=== PATIENT | male | born 1995 | race African-American/Black ===

== ENCOUNTER 2016-09-29 13:27 | Emergency (ER) | payer SELFPAY ==
[2016-09-29] MEDS ORDERED: HYDROcodone/Acetaminophen 5/325 mg Tablet ONE (13:47)
[2016-09-29] MEDS ORDERED: Ibuprofen 800 MG TAB ONE (13:47)
--- NOTE | 2016-09-29 16:20 | RAD ---
LEFT KNEE RADIOGRAPHS FOUR VIEWS 09/29/2016 PROVIDED CLINICAL HISTORY: Left knee pain, status post injury. FINDINGS: No evidence for fracture or other acute osseous abnormality. If there is persistent clinical concer n, conservative management and follow-up imaging are advised. IMPRESSION: No evidence for an acute osseous abnormality. If there is persistent clinical concern, conservative management and follow-up imaging are advised. POS: LOW
--- NOTE | 2016-09-29 16:21 | RAD ---
LEFT FORELEG RADIOGRAPHS TWO VIEWS 09/29/2016 PROVIDED CLINICAL HISTORY: Left foreleg pain, status post injury. FINDINGS: There is no evidence for fracture or other acute osseous abnormality. If there is persistent clinic al concern, conservative management and follow-up imaging are advised. IMPRESSION: As above. POS: LOW
--- NOTE | 2016-09-29 16:22 | RAD ---
LEFT ANKLE RADIOGRAPHS THREE VIEWS 09/29/2016 PROVIDED CLINICAL HISTORY: Left ankle pain, status post injury. FINDINGS: There is no evidence for fracture or other acute osseous abnormality. If there is persistent clinic al concern, conservative management and follow-up imaging are advised. IMPRESSION: As above. POS: LOW
--- NOTE | 2016-09-29 16:23 | RAD ---
LEFT FOOT RADIOGRAPHS THREE VIEWS 09/29/2016 PROVIDED CLINICAL HISTORY: Left foot pain, status post injury. FINDINGS: No evidence for fracture or other acute osseous abnormality. If there is persistent clinical concer n, conservative management and follow-up imaging are advised. IMPRESSION: As above. POS: LOW
== END 2016-09-29 14:50 | disposition home or self-care (01) ==
LOC: NAV ERS 13:27
DX: S93.402A Sprain of unspecified ligament of left ankle, initial encounter (principal); F31.9 Bipolar disorder, unspecified; F17.210 Nicotine dependence, cigarettes, uncomplicated; X50.1XXA Overexertion from prolonged static or awkward postures, initial encounter

== ENCOUNTER 2016-10-23 18:01 | Emergency (ER) | payer SELFPAY ==
[2016-10-23] MEDS ORDERED: Diazepam 10 MG/2 ML SYRINGE ONE (18:20)
== END 2016-10-23 18:39 | disposition home or self-care (01) ==
LOC: NAV ERS 18:01
DX: G40.909 Epilepsy, unspecified, not intractable, without status epilepticus (principal); F31.9 Bipolar disorder, unspecified; F17.210 Nicotine dependence, cigarettes, uncomplicated; Z79.899 Other long term (current) drug therapy
CPT/HCPCS: 96374; J3360

== ENCOUNTER 2017-01-07 22:12 | Emergency (ER) | payer SELFPAY ==
[2017-01-07] MEDS ORDERED: Sodium Chloride 0.9% 1,000 ML ONE (22:33)
[2017-01-07] MEDS ORDERED: Bacitracin Zinc 1 Packet ONE (22:58)
[2017-01-07 23:10] LABS: Anion Gap 17 mmol/L (10-20); BUN (Urea Nitrogen) 10 mg/dL (8.9-20.6); Calc. Creatinine Clearance 0 mL/min (70-130); Calcium 9.4 mg/dL (7.8-10.44); Carbon Dioxide 21 mmol/L (22-29); Chloride 105 mmol/L (98-107); Estimated GFR-MDRD Greater than 90; Glucose 108 mg/dL (70-105); Sodium 139 mmol/L (136-145)
[2017-01-07 23:26] LABS: Bacteria/HPF None Seen HPF (None Seen); Bilirubin Negative (Negative); Blood, Urine Trace (Negative); Clarity Clear (Clear); Glucose, Urine (Dipstick) Negative (Negative); Leukocyte Negative (Negative); Nitrite Negative (Negative); Protein, Urine (Dipstick) 100 mg/dL (Neg-Trace); RBC/HPF 0-3 HPF (0-3); Squamous Epithelial 0-3 HPF (0-3); Urobilinogen 0.2 mg/dL (0.2-1.0); WBC/HPF None Seen HPF (0-3)
[2017-01-07] MEDS ORDERED: Lorazepam 1 MG TAB ONE (23:46)
== END 2017-01-07 23:57 | disposition home or self-care (01) ==
LOC: NAV ERS 22:12
DX: G40.309 Generalized idiopathic epilepsy and epileptic syndromes, not intractable, without status epilepticus (principal); J45.909 Unspecified asthma, uncomplicated; F31.9 Bipolar disorder, unspecified; F17.210 Nicotine dependence, cigarettes, uncomplicated; Z79.899 Other long term (current) drug therapy
CPT/HCPCS: 80048; 81003; 81015; 87086; 96360; J7050

== ENCOUNTER 2017-06-18 10:13 | Emergency (ER) | payer SELFPAY | END 2017-06-18 10:42 | disposition home or self-care (01) | LOC: NAV ERS 10:13 | DX: G40.909 Epilepsy, unspecified, not intractable, without status epilepticus (principal); J45.909 Unspecified asthma, uncomplicated; F31.9 Bipolar disorder, unspecified; F17.210 Nicotine dependence, cigarettes, uncomplicated; Z79.899 Other long term (current) drug therapy | CPT/HCPCS: 99284 ==

== ENCOUNTER 2017-07-16 21:17 | Emergency (ER) | payer SELFPAY | END 2017-07-16 21:53 | disposition home or self-care (01) | LOC: NAV ERS 21:17 | DX: G40.409 Other generalized epilepsy and epileptic syndromes, not intractable, without status epilepticus (principal); S00.83XA Contusion of other part of head, initial encounter; J45.909 Unspecified asthma, uncomplicated; F31.9 Bipolar disorder, unspecified; F17.210 Nicotine dependence, cigarettes, uncomplicated; Z79.899 Other long term (current) drug therapy; Z91.14 Patient's other noncompliance with medication regimen; W22.8XXA Striking against or struck by other objects, initial encounter | CPT/HCPCS: 99284 ==